=== PATIENT | female | born 1965 | race Caucasian/White ===

== ENCOUNTER 2019-06-14 10:22 | Emergency (ER) | payer OTHER, SELFPAY ==
[2019-06-14 10:35] VITALS: BP 178/96; PULSE 65; RESP 16; TEMP 36.3; O2SAT 100
--- NOTE | 2019-06-14 10:37 | ED.GENADULT ---
HPI - General Adult General Chief complaint: Skin/Abscess/Foreign Body Stated complaint: pos shingles Source: patient and RN notes reviewed Mode of arrival: ambulatory Limitations: no limitations History of Present Illness HPI narrative: This is a 54 years old female presents to the office for an evaluation of possible shingle rash.Symptoms began yesterday with tingling/itchy sensation on her back and woke up today with rash. Symptoms reminiscent has previous shingle. Her first shingles rash worse last year. Denies sick contact. She did not attempt to call her doctor with the symptoms. Related Data Allergies Allergy/AdvReac Type Severity Reaction Status Date / Time No Known Allergies Allergy Mild Unverified 05/18/18 08:13 Review of Systems Review of Systems: Narrative: CONSTITUTIONAL: Denies fever or feeling ill ENT: Reports sinus allergies for weeks CARDIOVASCULAR: Denies chest pain RESPIRATORY: Denies dyspnea, wheezing. Reports occasional cough due to sinus allergies GASTROINTESTINAL: Denies abdominal pain, nausea, vomiting GENITOURINARY: Denies urinary symptoms SKIN: Reports rash on her back MUSCULOSKELETAL: Denies extremities pain NEUROLOGIC: Denies lightheaded PMFSH Past Medical History Medical History Basal cell carcinoma of chest Basal cell carcinoma of left forearm Basal cell carcinoma of right lower extremity Basal cell carcinoma, forehead HTN (hypertension) Shingles rash Surgical History Surgical History Hx of lumpectomy hx IDBC stage I Hx of tubal ligation Family History Family History Other Diabetes mellitus Family history of cardiovascular disease Hypertension Social History Social History Alcohol intake: current Comments At time of signature, I agree with nursing past medical, surgical, social and family history. There is no relevant family history pertinent to the presenting complaint. Exam Narrative: Exam Narrative: GENERAL: This is a well-nourished, well-developed patient, in no apparent distress. CARDIOVASCULAR: Regular rate and rhythm without murmurs, gallops, or rubs. RESPIRATORY: Clear to auscultation. Breath sounds equal bilaterally. No wheezes, rales, or rhonchi. GASTROINTESTINAL: Abdomen soft, non-tender, nondistended. Bowel sounds are active. No hepato-splenomegaly, or palpable masses. No guarding. SKIN: Left mid back along her bra line noted group-macular erythema rash that did not cross midline, no secondary cellulitis. NEURO: awake, alert, and oriented to person, place and time. There were no obvious focal neurologic abnormalities. Steady gait BACK: Nontender without deformity or crepitance. No flank tenderness. [place] Coma Scale Eye Opening: Spontaneous 4 [place] Coma Scale Motor: Obeys Commands 6 [place] Coma Scale Verbal: Oriented 5 Course Vital Signs Vital signs: Vital Signs Temperature 97.4 F L 06/14/19 10:35 Pulse Rate 65 06/14/19 10:35 Respiratory Rate 16 06/14/19 10:35 Blood Pressure 178/96 H 06/14/19 10:35 Pulse Oximetry 100 06/14/19 10:35 Temperature 97.4 F L 06/14/19 10:35 Pulse Rate 65 06/14/19 10:35 Respiratory Rate 16 06/14/19 10:35 Blood Pressure 178/96 H 06/14/19 10:35 Pulse Oximetry 100 06/14/19 10:35 Medical Decision Making MDM Narrative Medical decision making narrative: Elevated BP noted: patient is informed to arrange follow-up for further evaluation/recheck of BP within 1-2week. Discharge instructions reviewed with patient, as well as provided in writing per nursing staff. The instructions also include specific and strict return/GO TO THE ER as well as f/u information. All questions have been answered, and the patient deny any further questions with discharge and discharge
== END 2019-06-14 10:58 | disposition home or self-care (01) ==
PROVIDERS: Emergency Provider Nurse Practitioner
DX: B02.9 Zoster without complications (principal); I10 Essential (primary) hypertension; Z85.828 Personal history of other malignant neoplasm of skin
CPT/HCPCS: 99213; G0463

== ENCOUNTER → 2020-10-11 15:48 | Outpatient (CLI) | payer OTHER, SELFPAY ==
--- NOTE | ~2020-10-11 | MM_ITS ---
EXAMINATION: MM screening [facility] BI w gregory HISTORY: Screening mammogram TECHNIQUE: Craniocaudal and mediolateral oblique 3-D tomosynthesis images were obtained and synthetic 2-D images were generated. Bilateral rotated lateral cc views. CAD analysis was submitted and interp reted. COMPARISON: 06/11/2015 diagnostic left digital mammogram 06/05/2015 bilateral digital screening mammogram BREAST PARENCHYMAL COMPOSITION: The breasts are heterogeneously dense, which may obscure small masses . 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 There is no evidence of suspicious mass, calcification, or architectural distortion to suggest malign mirella in either breast. There has been no suspicious interval change. IMPRESSION: 1. No mammographic evidence of malignancy. 2. Recommend routine screening mammography in one year. BI-RADS Category 1: Negative Reviewed, dictated and finalized at location A.
== END ==
PROVIDERS: PCP Family Medicine; Visit Provider Obstetrics & Gynecology Gynecology
DX: Z12.31 Encounter for screening mammogram for malignant neoplasm of breast (principal)
CPT/HCPCS: 77063; 77067

== ENCOUNTER → 2021-12-19 12:55 | Outpatient (CLI) | payer OTHER, SELFPAY ==
--- NOTE | ~2021-12-19 | MM_ITS ---
EXAMINATION: MM screening [facility] BI w gregory HISTORY: Screening mammogram, history of DCIS in the left breast TECHNIQUE: Craniocaudal and mediolateral oblique 3-D tomosynthesis images were obtained and synthetic 2-D images were generated. CAD analysis was submitted and interpreted. COMPARISON: 10/11/2020, 06/11/2015, 06/05/2015 BREAST PARENCHYMAL COMPOSITION: The breasts are heterogeneously dense, which may obscure small masses . FINDINGS: Lumpectomy changes are noted in the left breast. No suspicious mass, calcification, or arch itectural distortion are identified in either breast to suggest malignancy. There has been no suspici ous interval change. IMPRESSION: 1. No mammographic evidence of malignancy. 2. Recommend routine screening mammography in one year. BI-RADS Category 2: Benign finding(s). Reviewed, dictated and finalized at location B.
== END ==
PROVIDERS: PCP Family Medicine; Visit Provider Obstetrics & Gynecology Gynecology
DX: Z12.31 Encounter for screening mammogram for malignant neoplasm of breast (principal)
CPT/HCPCS: 77063; 77067

== ENCOUNTER → 2022-12-30 14:29 | Outpatient (CLI) | payer OTHER, SELFPAY ==
--- NOTE | ~2022-12-30 | MM_ITS ---
EXAMINATION: MM screening [facility] BI w gregory HISTORY: Screening TECHNIQUE: Craniocaudal and mediolateral oblique 3-D tomosynthesis images were obtained and synthetic 2-D images were generated. CAD analysis was submitted and interpreted. COMPARISON: Comparison to multiple prior studies sequentially, with oldest reviewed study dated 06/04. BREAST PARENCHYMAL COMPOSITION: There are scattered areas of fibroglandular density. FINDINGS: There is a developing nodular asymmetries in the subareolar location of the left breast. Th e right breast is stable without evidence for malignancy. IMPRESSION: 1. Developing nodular asymmetries periareolar location of the left breast. 2. Additional mammographic views and possible breast ultrasound are recommended. BI-RADS Category 0: Incomplete: Needs additional imaging evaluation. Reviewed, dictated and finalized at location A. IMPRESSION: 1. Developing nodular asymmetries periareolar location of the left breast. 2. Additional mammographic views and possible breast ultrasound are recommended . BI-RADS Category 0: Incomplete: Needs additional imaging evaluation.
== END ==
PROVIDERS: PCP Obstetrics & Gynecology Gynecology; Visit Provider Nurse Practitioner
DX: Z12.31 Encounter for screening mammogram for malignant neoplasm of breast (principal); R92.8 Other abnormal and inconclusive findings on diagnostic imaging of breast
CPT/HCPCS: 77063; 77067

== ENCOUNTER → 2023-01-29 08:13 | Outpatient (CLI) | payer OTHER, SELFPAY ==
--- NOTE | ~2023-01-29 | MM_ITS ---
EXAMINATION: MM diagnostic [facility] LT w gregory HISTORY: Subareolar asymmetry of the left breast on screening mammogram TECHNIQUE: Additional 3-D tomosynthesis images of the left breast were performed and synthetic 2-D im ages were generated. CAD analysis was submitted and interpreted. COMPARISON: Prior mammograms dating back to 06/05/2015 FINDINGS: There is a return to baseline fibroglandular appearance with spot compression of the left b reast in the area questioned on screening mammogram. No suspicious mass, calcification, or architectu ral distortion are identified. IMPRESSION: 1. No mammographic evidence of malignancy. 2. Recommend routine screening mammography in one year. BI-RADS Category 1: Negative Reviewed, dictated and finalized at location A. 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
== END ==
PROVIDERS: PCP Family Medicine; Visit Provider Obstetrics & Gynecology Gynecology
DX: R92.8 Other abnormal and inconclusive findings on diagnostic imaging of breast (principal)
CPT/HCPCS: 77061; 77065; G0279

== ENCOUNTER → 2023-02-09 14:14 | Outpatient (CLI) | payer OTHER, SELFPAY ==
--- NOTE | ~2023-02-09 | DEXA_ITS ---
Bone Density Report Name: RANDELL CHAVIS Age: 57 Sex: Female Ethnicity: Myles Date of : 1965 Indication: postmenopausal; screening for osteoporosis; Referring Provider: MARE, SCOTT Study: Bone densitometry was performed. Exam Date: February 09, 2023 Accession number: [id number] Bone Density: Region BMD T-score Z-score Classification AP Spine (L1-L4) 1.108 0.6 1.9 Normal Femoral Neck (Left) 0.805 -0.4 0.9 Normal Total Hip (Left) 0.971 0.2 1.2 Normal Femoral Neck (Right) 0.807 -0.4 0.9 Normal Total Hip (Right) 1.005 0.5 1.5 Normal Total Hip Mean 0.988 0.4 1.4 Normal World Health Organization criteria for BMD impression classify patients as: Normal (T-score at or above -1.0), Osteopenia (T-score between -1.0 and -2.5), or Osteoporosis (T-score at or below -2.5). 10-year Fracture Risk: FRAX not reported because: All T-scores for Spine Total, Hip Total, Femoral Neck at or above -1.0 Previous Exams: Region Exam Age BMD T-score BMD Change BMD Change Date g/cm2 vs Baseline vs Previous AP Spine(L1-L4) 02/09/2023 57 1.108 0.6 -0.060* 0.015 07/30/2018 53 1.093 0.4 -0.075* -0.075* 06/05/2015 50 1.168 1.1 Total Hip(Left) 02/09/2023 57 0.971 0.2 -0.015 -0.003 07/30/2018 53 0.973 0.3 -0.012 -0.012 06/05/2015 50 0.986 0.4 Total Hip(Right) 02/09/2023 57 1.005 0.5 -0.021 0.020 07/30/2018 53 0.985 0.4 -0.042* -0.042* 06/05/2015 50 1.027 0.7 *Denotes significance at 95% confidence level, LSC for AP Spine = 0.022 g/cm2, LSC for Total Hip = 0.027 g/cm2 Clinical Information Provided by Patient: Has used the following medications: Vitamin D, MTV Patient maximum height was 68.25 Menopause Age: 48 No regular weight bearing exercise Drinks caffeinated beverages Onset of menses at age 10 Number of children 2 Impression: The patient has normal bone mass. No significant bone loss was observed. Discussion: BONE DENSITY IS ABOVE THE MINIMUM DESIRABLE LEVEL AT ALL SKELETAL SITES TESTED. This patient?s bone mineral density is above the minimum desirable level (T-score -1.0 or better) at all sites measured. The patient should follow a healthful lifestyle (good nutrition with adequate calcium and vitamin D, and appropriate weight-bearing exercise). Follow-Up: Consider repeating this study in 5 years
== END ==
PROVIDERS: PCP Nurse Practitioner; Visit Provider Nurse Practitioner
DX: Z78.0 Asymptomatic menopausal state (principal)
CPT/HCPCS: 77080

== ENCOUNTER 2023-02-17 10:32 | Emergency (ER) | payer OTHER, SELFPAY ==
--- NOTE | ~2023-02-17 | XR_ITS ---
EXAMINATION: XR chest 2V 02/17/2023 12:27 INDICATION: Chest pain PROCEDURE: 2 view chest COMPARISON: No prior studies for comparison. FINDINGS: The lungs are clear. The cardiomediastinal silhouette is within normal limits. There are no pleural effusions. There is no pneumothorax suspected. IMPRESSION: 1: NO ACUTE CARDIOPULMONARY DISEASE. Reviewed, dictated and finalized at location L. T[employer]ER [employer]ING
[2023-02-17 10:43] VITALS: BP 215/95; PULSE 88; RESP 17; TEMP 36.3; O2SAT 100
--- NOTE | 2023-02-17 10:46 | ECG_ITS ---
Measurements Intervals [place] Rate: 81 P: 39 IL: 157 QRS: -10 QRSD: 84 T: 62 QT: 387 QTc: 450 Interpretive Statements SINUS RHYTHM LOW QRS VOLTAGE IN PRECORDIAL LEADS [QRS DEFLECTION < 1.0 mV IN CHEST LEADS] MODERATE ST DEPRESSION [0.05+ mV ST DEPRESSION] COMPARED TO ECG 05/18/2018 07:44:59 ST (T WAVE) DEVIATION NOW PRESENT Electronically Signed On 02-17-2023 13:34:54 ORTHOPEDIC SURGEON by Sydnie Munoz M.D.
[2023-02-17 10:57] LABS: Basophils Absolute Auto 0.1 K/mm3 (0.0-0.1); Basophils Percent Auto 1.4 % (0.2-1.2); Eosinophils Absolute Auto 0.3 K/mm3 (0-0.3); Eosinophils Percent Auto 4.8 % (0-4.4); Hematocrit 50.4 % (37.0-47.0); Hemoglobin 16.9 g/dL (12.0-15.0); Immature Granulocyte Absolute 0.01 K/mm3 (0.00-0.031); Immature Granulocyte Percent A 0.2 % (0-0.5); Lymphocytes Absolute Auto 1.69 K/mm3 (0.9-3.2); Lymphocytes Percent Auto 32.6 % (18.3-44.2); Mean Corpuscular HGB Conc 33.5 g/dl (32-36); Mean Corpuscular Hemoglobin 29.3 pg (26-34); Mean Corpuscular Volume 87.5 fl (80-100); Mean Platelet Volume 9.6 fl (7.4-10.4); Monocytes Absolute Auto 0.3 K/mm3 (0.1-0.6); Neutrophils Absolute Auto 2.9 K/mm3 (1.3-6.7); Platelet Count Result 287 k/mm3 (150-375); Red Blood Count 5.76 M/mm3 (4.2-5.4); Red Cell Distribution Width 12.3 % (11.5-14.5); White Blood Count 5.2 K/mm3 (4.5-10.0)
[2023-02-17 11:07] LABS: Alanine Aminotransferase 38 U/L (6-35); Albumin Level 4.9 g/dL (3.5-5.1); Alkaline Phosphatase 93 U/L (38-126); Anion Gap 11 mmol/L (8-16); Aspartate Amino Transferase 33 U/L (14-36); Bilirubin,Total 0.7 mg/dL (0.2-1.3); Blood Urea Nitrogen 11 mg/dL (7-17); Calcium 9.8 mg/dL (8.4-10.2); Carbon Dioxide 27 mmol/L (22-30); Chloride 104 mmol/L (98-107); Estimated CRCL calculation 85 ml/min; Estimated Glomerular Filt Rate > 60; Glucose 110 mg/dL (65-110); Lipase 217 U/L (23-300); Potassium 3.8 mmol/L (3.4-5.0); Sodium 142 mmol/L (137-145)
[2023-02-17 11:10] LABS: INR 0.9; Prothrombin Time 12.2 Seconds (11.1-14.7)
[2023-02-17 11:11] LABS: Partial Thromboplastin Time 26.1 SECONDS (22.3-36.8)
[2023-02-17 11:18] LABS: Troponin I < 0.012 ng/mL (0.000-0.034)
--- NOTE | 2023-02-17 13:53 | ED.NEUROSD ---
HPI - Neuro Symptoms/Deficit General Chief Complaint: Neuro Symptoms/Deficit <JEAN Persaud Last Filed: 02/17/23 14:06> Stated Complaint: R ARM NUMB ELEVATED BP <JEAN Persaud Last Filed: 02/17/23 14:06> Time Seen by Provider: 02/17/23 14:20 <JEAN Persaud Last Filed: 02/17/23 14:06> Source: patient <JEAN Persaud Last Filed: 02/17/23 14:06> Mode of arrival: ambulatory <JEAN Persaud Last Filed: 02/17/23 14:06> Limitations: no limitations <JEAN Persaud Last Filed: 02/17/23 14:06> History of Present Illness HPI Narrative: Patient is a 57 y/o female who presents to the ED with c/o right upper extremity paresthesias, hypertension. Patient reports she noticed her R arm and fingers became numb and tingly this morning around 10 am. She then began feeling lightheaded and funny with intermittent brief episode of L sided CP/aching. She checked her BP at that time and noted it to be elevated into the 170s-190s systolic. Blood pressure persistently elevated today, which prompted her presentation. She does note that she has had similar sx's in her upper extremities intermittently over the last 1 month but they have not lasted this long. Patient reports previous Hx of HTN, previously on Lisinopril, but stopped taking it herself over 6 months ago. She last checked her BP at home a few weeks ago and states it was normal. Patient states she feels better currently. No numbness/tingling, LH, CP currently. No SOB, KRUEGER, vision changes. <JEAN Persaud Last Filed: 02/17/23 14:06> Patient is a 57 y/o righ thand dominant female who presents to the ED with c/o right upper extremity paresthesias, hypertension. Patient reports she noticed her R arm and fingers 4 and 5 became numb and tingly this morning around 10 am. She then began feeling lightheaded and funny with intermittent brief episode of L sided CP/aching rated 2 out of 10 in severity. She checked her BP at that time and noted it to be elevated into the 170s-190s systolic. Blood pressure persistently elevated today, which prompted her presentation. She does note that she has had similar sx's in her upper extremities intermittently over the last 1 month but they have not lasted this long. Patient reports previous Hx of HTN, previously on Lisinopril, but stopped taking it herself over 6 months ago. She last checked her BP at home a few weeks ago and states it was normal. Patient states she feels better currently. No numbness/tingling, LH, CP currently. No SOB, KRUEGER, vision changes. No history of DM. She notes sometimes she will have symptoms in her left upper extremity. She also notes an incident recently where she was experiencing digits 4 and 5 stuck in partial flexion, unable to fully extend them. THis occurred in the setting of scooping ice cream at her grandchild's birthday libertarian and they remained locked this way for a few minutes. She does work on a computer and often finds she has numbness and tingling in digits 4 and 5 for which she shakes her hands at the wrist. <Kori Ramirez MD - Last Filed: 02/20/23 13:36> Related Data Allergies/Adverse Reactions: Allergies Allergy/AdvReac Type Severity Reaction Status Date / Time No Known Allergies Allergy Mild Unverified 05/18/18 08:13 <Neda Rose PA-C - Last Filed: 02/17/23 14:06> Review of Systems Review of Systems: CONSTITUTIONAL: Denies fever, chills, or sweats. ENT: Denies rhinorrhea, congestion, sore throat. CARDIOVASCULAR: See HPI. RESPIRATORY: Denies cough or dyspnea. GASTROINTESTINAL: Denies abdominal pain, nausea, vomiting. MUSCULOSKELETAL: Denies back pain, joint pain, or myalgia. NEUROLOGIC: See HPI. <Neda Rose PA-C - Last Filed: 02/17/23 14:06> All systems reviewed & are unremarkable except as noted in HPI and below <Neda Rose PA-C
[2023-02-17 14:43] LABS: Troponin I < 0.012 ng/mL (0.000-0.034)
[2023-02-17 15:17] VITALS: BP 171/96; PULSE 70; RESP 16; O2SAT 100
[2023-02-17 16:03] VITALS: BP 159/94; PULSE 66; RESP 10; O2SAT 97
[2023-02-17 16:35] VITALS: BP 144/92; PULSE 66; RESP 15; O2SAT 97
== END 2023-02-17 16:35 | disposition home or self-care (01) ==
PROVIDERS: Emergency Medicine; Emergency Provider Student in an Organized Health Care Education/Training Program; PCP Family Medicine
DX: G56.21 Lesion of ulnar nerve, right upper limb (principal); I10 Essential (primary) hypertension; Z85.828 Personal history of other malignant neoplasm of skin
CPT/HCPCS: 36415; 71046; 80053; 83690; 84484; 85025; 85610; 85730; 93005; 99284

== ENCOUNTER 2024-01-05 14:06 | Outpatient (CLI) | payer OTHER, SELFPAY ==
--- NOTE | ~2024-01-05 | MM_ITS ---
EXAMINATION: MM screening [facility] BI w gregory HISTORY: Screening TECHNIQUE: Craniocaudal and mediolateral oblique 3-D tomosynthesis images were obtained and synthetic 2-D images were generated. CAD analysis was submitted and interpreted. COMPARISON: Comparison to multiple prior studies sequentially, with oldest reviewed study dated 06/04. BREAST PARENCHYMAL COMPOSITION: Not dense: There are scattered areas of fibroglandular density. FINDINGS: There is no evidence of suspicious mass, calcification, or architectural distortion to sugg est malignancy in either breast. There has been no suspicious interval change. IMPRESSION: 1. No mammographic evidence of malignancy. 2. Recommend routine screening mammography in one year. BI-RADS Category 1: Negative Reviewed, dictated and finalized at location B.
== END 2024-01-05 14:07 | disposition home or self-care (01) ==
LOC: MICIMG 14:08
PROVIDERS: PCP Nurse Practitioner; Visit Provider Nurse Practitioner
DX: Z12.31 Encounter for screening mammogram for malignant neoplasm of breast (principal)
CPT/HCPCS: 77063; 77067